=== PATIENT | female | born 1995 ===

== ENCOUNTER 2019-04-23 14:15 | Inpatient (IN) | payer OTHER ==
[~2019-04-23] VITALS: Ht 162.6 cm; Wt 77.6 kg
[2019-04-29] MEDS ORDERED: PRENATAL CAPLE1 EAC1 PO (20:57)
== END 2019-05-02 16:03 | disposition home or self-care (01) | DRG 807 ==
LOC: LDR 04-30 00:45 → OB/GYN 04-30 00:45
PROVIDERS: ADMIT Obstetrics & Gynecology
PROC: 10E0XZZ Delivery of Products of Conception, External Approach (ICD-10-PCS; principal; 2019-04-30)
PROC: 4A1HXCZ Monitoring of Products of Conception, Cardiac Rate, External Approach (ICD-10-PCS; 2019-04-30)
DX: O80 Encounter for full-term uncomplicated delivery (principal); Z37.0 Single live birth; Z3A.38 38 weeks gestation of pregnancy

== ENCOUNTER 2019-04-29 18:04 | Outpatient (CLI) | payer OTHER ==
[2019-04-29] MEDS ORDERED: PRENATAL CAPLE1 EAC1 PO (20:57)
== END 2019-04-30 00:44 | disposition still patient (30) ==
LOC: OBS/DEL 18:04
DX: O76 Abnormality in fetal heart rate and rhythm complicating labor and delivery (principal); O35.8XX0 Maternal care for other (suspected) fetal abnormality and damage, not applicable or unspecified